=== PATIENT | male | born 1955 ===

== ENCOUNTER 2018-10-09 12:18 | Emergency (ER) | payer OTHER ==
[~2018-10-09] VITALS: Ht 170.2 cm; Wt 98.0 kg
[~2018-10-09 12:18] MED LIST: DIPH25CA46; LISI-167 PO; PANT40TA5 PO
[2018-10-09 12:25] VITALS: BP 136/86
[2018-10-09 13:32] LABS: BASOPHILS # (AUTO) 0.02 x10^3/uL (0-0.1); BASOPHILS % (AUTO) 0 % (0-1); EOSINOPHILS # (AUTO) 0.11 x10^3/uL (0-0.4); EOSINOPHILS % (AUTO) 2 % (1-7); LYMPHOCYTES # (AUTO) 1.15 x10^3/uL (1-3.4); LYMPHOCYTES % (AUTO) 18 % (22-44); MD NO; MEAN CORPUSCULAR HEMOGLOBIN 30.4 pg (27.5-34.5); MEAN CORPUSCULAR HGB CONC 33.4 g/dL (33.2-36.2); MEAN PLATELET VOLUME 8.2 fL (7.4-10.4); MONOCYTES # (AUTO) 0.52 x10^3/uL (0.2-0.8); MONOCYTES % (AUTO) 8 % (2-9); NEUTROPHILS # (AUTO) 4.71 x10^3/uL (1.8-6.8); NEUTROPHILS % (AUTO) 72 % (42-75); PLATELET COUNT 213 x10^3/uL (130-400); RED BLOOD COUNT 4.72 x10^6/uL (4.38-5.82); RED CELL DISTRIBUTION WIDTH 12.7 % (9.4-14.8)
--- NOTE | 2018-10-09 13:36 | NUR ---
LUNCH RN: PT RESTING IN BED, VSS AND NADN. PT HAS NO NEEDS AT THIS TIME.
[2018-10-09 13:41] LABS: ALANINE AMINOTRANSFERASE 79 U/L (12-78); ALBUMIN 3.8 g/dL (3.4-5.0); ANION GAP 8 mmol/L (5-15); CHLORIDE 107 mmol/L (98-107)
[2018-10-09 13:43] LABS: ALKALINE PHOSPHATASE 85 U/L (45-117); BILIRUBIN,TOTAL 0.5 mg/dL (0.2-1.0); TOTAL PROTEIN 7.1 g/dL (6.4-8.2)
[2018-10-09] MEDS ORDERED: metroNIDAZOLE 500 MG TABLET PO ONE (15:00)
[2018-10-09] MEDS ORDERED: AMOXICILLIN/CLAV 875-125MG TABLET PO ONE (15:00)
[2018-10-09 15:02] LABS: MICROSCOPIC NOT IND
[2018-10-09 15:11] LABS: CULTURE INDICATED? NO
[2018-10-09] MEDS ORDERED: AMOXICILLIN/CLAV 875-125MG TABLET ONE (15:43)
[2018-10-09] MEDS ORDERED: metroNIDAZOLE 500 MG TABLET ONE (15:43)
== END 2018-10-09 15:43 | disposition home or self-care (01) ==
LOC: ED 13:28
DX: K57.32 Diverticulitis of large intestine without perforation or abscess without bleeding (principal); I10 Essential (primary) hypertension
CPT/HCPCS: 36415; 74177; 80053; 81003; 83690; 85025; 99284

== ENCOUNTER 2019-01-24 09:17 | Emergency (ER) | payer OTHER ==
[~2019-01-24] VITALS: Ht 170.2 cm; Wt 98.0 kg
[2019-01-24 09:23] VITALS: BP 124/77
--- NOTE | 2019-01-24 10:01 | NUR ---
Patient given discharge instructions and they have confirmed that they understand the instructions. Patient ambulatory with steady gait. Pt left with d/c paperwork, Rx, and all personal belongings. NADN. No other needs expressed.
== END 2019-01-24 10:03 | disposition home or self-care (01) ==
LOC: ED 09:45
DX: H11.32 Conjunctival hemorrhage, left eye (principal); I10 Essential (primary) hypertension
CPT/HCPCS: 99282